=== PATIENT | male | born 1980 | race Caucasian/White ===

== ENCOUNTER 2018-08-16 08:05 | Emergency (ER) | payer BC ==
[~2018-08-16] VITALS: Ht 180.3 cm; Wt 86.2 kg
[~2018-08-16 08:05] MED LIST: ACETAMINOPHEN650 M5; AUGMENTIN 500-1 EACH; CIPROFLOXACIN500 M1 PO; FLAGYL500 M1 PO; FLAGYL500 MG; GARCINIA CAMBO1 EACH PO; IBUPROFEN 800800 MG PO; NOHOMEMEDICATIONS; NORCO 5-325 TA1 EACH PO; NORCO 7.5-3251 EACH; PROAIR HFA8.5 GM INH; PROMETHAZINE V473 ML PO; ROBAXIN500 MG PO; TESSALON PERLE100 MG PO; XANAX 0.5 MG0.5 M1; ZPAK PO
[2018-08-16 08:12] VITALS: BP 126/66
== END 2018-08-16 08:22 | disposition home or self-care (01) ==
LOC: M.ERS 08:05
DX: S00.83XA Contusion of other part of head, initial encounter (principal); W22.8XXA Striking against or struck by other objects, initial encounter; Y93.89 Activity, other specified; Y92.89 Other specified places as the place of occurrence of the external cause; Y99.8 Other external cause status